=== PATIENT | female | born 1975 | race Caucasian/White ===

== ENCOUNTER 2017-03-27 13:57 | Outpatient (CLI) | payer OTHER ==
--- NOTE | 2017-03-28 10:10 | Mammography Report ---
BILATERAL DIGITAL DIAGNOSTIC MAMMOGRAM: 03/27/2017 CLINICAL HISTORY: A 42-year-old female in for a routine screening mammogram. Patient has no family history of breast cancer. Patient did have a biopsy of the right breast of a small mass in the upper -outer quadrant. This was a needle biopsy which showed a benign fibroadenoma. Present exam is being done approximately one year after patient's ultrasound-guided biopsy. COMPARISON: 04/05/2016, 04/12/2016. TECHNIQUE: Craniocaudal and oblique lateral views of each breast were obtained with [employer] full fie ld digital mammography. To complement the exam, axillary exaggerated craniocaudad views of each [address]ag[address] st were obtained. Also, coned-down compression craniocaudad view of the right breast was done. FINDINGS: Heterogeneously dense breasts are noted bilaterally. No significant no significant cluste rs of calcification are seen. Previously noted well-circumscribed mass in the 12 o'clock position of the right breast, 3 cm from th e right nipple, is once again seen. This mass is not significantly changed in size as compared to pr eceding exams dated 04/05/2016 and 04/12/2016. It measures 1.2 cm x 0.7 cm. This is approximately i ts size on preceding exam. Finding configuration is consistent with a benign fibroadenoma being oval -shaped and well-circumscribed. A small metallic marker is seen adjacent to the lateral anterior asp ect of the mass. This marker was placed into this region at the time of patient's biopsy and identif ies the mass as the one that was biopsied. IMPRESSION: NO CHANGE IS NOTED COMPARED TO PRECEDING EXAMS DATED 04/05/2016 AND 04/12/2016. A 1. 2 CM X 0.7 CM WELL-CIRCUMSCRIBED BENIGN FIBROADENOMA IS ONCE AGAIN SEEN IN THE 12 O'CLOCK POSITION OF THE ANTERIOR HALF OF THE RIGHT BREAST. BIRADS CATEGORY: 2, BENIGN FINDING. RECOMMENDATION: ANNUAL BILATERAL SCREENING MAMMOGRAPHY. COMMENT: Patient was given a written form indicating the benign findings and recommending a repeat b ilateral screening mammogram in one year. JOB #: [id number] EXT JOB #:[id number]
== END 2017-03-27 13:58 | disposition home or self-care (01) ==
LOC: DI 13:57
PROVIDERS: ATTEND Family Medicine
DX: D24.1 Benign neoplasm of right breast (principal)
CPT/HCPCS: 77066

== ENCOUNTER 2017-07-01 17:25 | Outpatient (CLI) | payer OTHER ==
--- NOTE | 2017-07-02 09:36 | XRAY Report ---
CERVICAL SPINE: 07/01/2017 COMPARISON STUDY: Cervical spine CT 02/18/2014. INDICATION: Neck pain. TECHNIQUE: Five views of the cervical spine. FINDINGS: C4-C5 and C5-C6 fusion are noted. There is narrowing of the bony neural foramina as follows: Right: C3-C4 moderate, C4-C5 mild, C5-C6 mild. Left: C3-C4 moderate, C4-C5 moderate, C5-C6 mild to moderate. There is mild narrowing of the C3-C4 disk space. There are mild anterior osteophytes at multiple lev els. There is no prevertebral soft tissue swelling. The lateral masses appear symmetric. IMPRESSION: MILD TO MODERATE CERVICAL SPONDYLOSIS DETAILED ABOVE. JOB #: [id number] EXT JOB #:[id number]
== END 2017-07-01 17:26 | disposition home or self-care (01) ==
LOC: DI 17:25
PROVIDERS: ATTEND Family Medicine
DX: M47.892 Other spondylosis, cervical region (principal)
CPT/HCPCS: 72050

== ENCOUNTER 2018-11-05 10:23 | Emergency (ER) | payer OTHER ==
--- NOTE | 2018-11-05 11:49 | ED Physician Documentation ---
PD HPI URI - Stated complaint Stated Complaint: PAINFUL BREATHING/LIGHT HEADED - Chief complaint Chief Complaint: Resp - History obtained from History obtained from: Patient - History of Present Illness Timing - onset: How many days ago (10) Timing duration: Days (10) Timing details: Gradual onset, Now resolved Associated symptoms: Nasal congestion, Rhinorrhea, Productive cough, Dyspnea Contributing factors: Sick contact Improves by: Rest, Medication Similar symptoms before: Diagnosis (bronchitis) Recently seen: Not recently seen - Additional information Additional information: 43-year-old female has had a cough and congestion for the past 10 days she is been producing some phlegm but she has been swallowing it. She has not had any fever associated with this she felt that she would get better with this and she wanted to try to get up and go to work today and felt that she was even worse. She has some shortness of breath and she has used an inhaler before but she is even forgot that she had that. She has it right in her purse. Review of Systems Constitutional: denies: Fever Eyes: denies: Decreased vision Ears: denies: Ear pain Nose: reports: Rhinorrhea / runny nose, Congestion Throat: reports: Sore throat Cardiac: denies: Chest pain / pressure, Palpitations Respiratory: reports: Dyspnea, Cough, Wheezing GI: denies: Abdominal Pain, Nausea, Vomiting : denies: Dysuria, Frequency PD PAST MEDICAL HISTORY - Past Medical History Musculoskeletal: Chronic back pain, Other - Past Surgical History Past Surgical History: Yes General: Cholecystectomy - Present Medications Home Medications: Ambulatory Orders Medication Instructions Recorded Confirmed Azithromycin [Zithromax] 250 mg PO DAILY #6 tablet 11/05/18 tiZANidine [Zanaflex] 1 tab PO TID PRN 11/05/18 11/05/18 - Allergies Allergies/Adverse Reactions: Allergies Allergy/AdvReac Type Severity Reaction Status Date / Time No Known Drug Allergies Allergy Verified 11/05/18 10:29 - Social History Does the pt smoke?: No Smoking Status: Never smoker Does the pt drink ETOH?: No - Immunizations Immunizations are current?: Yes PD ED PE NORMAL - Vitals Vital signs reviewed: Yes (hypertensive mild) - General General: Alert and oriented X 3, No acute distress, Well developed/nourished - HEENT HEENT: Atraumatic, PERRL, EOMI, Ears normal, Moist mucous membranes, Pharynx benign - Neck Neck: Supple, no meningeal sign, No bony TTP - Cardiac Cardiac: RRR, No murmur - Respiratory Respiratory: No respiratory distress, Other (diminished breath sounds without rhonchi) - Abdomen Abdomen: Soft, Non tender - Back Back: No CVA TTP, No spinal TTP - Derm Derm: Normal color, Warm and dry, No rash - Extremities Extremities: No deformity, No edema - Neuro Neuro: Alert and oriented X 3, skiver box toe 2-12 intact, No motor deficit, No sensory deficit, Normal speech Eye Opening: Spontaneous Motor: Obeys Commands Verbal: Oriented GCS Score: 15 - Psych Psych: Normal mood, Normal affect Results - Vitals Vitals: Vital Signs - 24 hr 11/05/18 10:28 Temperature 36.1 C L Heart Rate 74 Respiratory 18 Rate Blood Pressure 137/78 H O2 Saturation 100 Oxygen O2 Source Room air PD MEDICAL DECISION MAKING - ED course Complexity details: reviewed old records, considered differential, d/w patient ED course: 43-year-old female has had cough and congestion has some wheezing and no evidence of rhonchi on examination. She does not feel well enough to go back to work and she has had productive cough for [address] her on a cour se of antibiotic after giving her some dexamethasone and I will encourage her to use her inhaler. Departure - Departure Disposition: 01 Home, Self Care Clinical Impression: Asthmatic bronchitis Qualifiers: Asthma severity: mild Asthma persistence: intermittent Asthma complication type: with acute exacerbation Qualified Code(s): J45.21 - Mild intermittent asthma with (acute) exacerbation Condition: Stable Instructions: ED Bronchitis Asthmatic Follow-Up: Mekhi Montalvo DO [Primary Care Provider] - Prescriptions: Azithromycin [Zithromax] 250 mg PO DAILY #6 tablet Forms: Activity restrictions
[2018-11-05] MEDS ORDERED: DEXAMETHASONE 10 MG/ML VIAL PO STA (11:51)
[2018-11-05 11:58] VITALS: BP 122/84
== END 2018-11-05 12:02 | disposition home or self-care (01) ==
LOC: ED 10:23
DX: J45.21 Mild intermittent asthma with (acute) exacerbation (principal)
CPT/HCPCS: 99283

== ENCOUNTER 2018-12-09 09:23 | Outpatient (CLI) | payer OTHER ==
--- NOTE | 2018-12-09 12:20 | Mammography Report ---
Reason: R BREAST TENDERNESS Procedure Date: 12/09/2018 Accession Number: [id number] / [id number] Procedure: SATISH - Diagnostic Dig Bilat CPT Code: FULL RESULT: EXAM: Diagnostic Dig Bilat, Breast Unilateral Limited DATE: 12/09/2018 10:08 AM CLINICAL HISTORY: Several months of focal right upper outer breast pain. No reported personal or family history of breast cancer. TECHNIQUE: (B) - Bilateral Bilateral CC and MLO views were obtained. 90 degree lateral 2-D 3-D right breast mammogram. Real-time ultrasound performed by both technologist and the radiologist on the right. COMPARISON: 03/27/2017 through 04/05/2016 PARENCHYMAL PATTERN: (D) - The breasts demonstrate heterogeneously dense fibroglandular parenchyma bilaterally. FINDINGS: Right breast: There are no suspicious masses, calcifications or areas of distortion. There is no mammographic finding of concern in the region of focal pain per patient marked with an external marker posterior upper outer breast. There is a stable biopsy marker with associated oval, circumscribed mass in the 12:00 breast consistent with the previously biopsied fibroadenoma. Targeted ultrasound at 11:00, 6 cm from the nipple at the site of focal pain demonstrates normal appearing glandular tissue associated with intermixed clustered simple cysts consistent with focal fibrocystic condition. No mass or concerning finding. Left breast: There are no suspicious masses, calcifications, or areas of distortion. IMPRESSION: Right breast: Benign imaging findings: Area of focal pain per patient associated with focal fibrocystic change by ultrasound. Benign. BI-RADS Category 2. Recommend annual screening mammography. Left breast: Negative. BI-RADS Category 1. Recommend annual screening mammography. RECOMMENDATION: (ANNUAL) - Recommend routine annual screening mammography. BI-RADS CATEGORY: (2) - Benign Findings STANDARD QUALIFYING STATEMENTS: 1. This examination was not reviewed with the aid of Computer-Aided Detection (CAD). 2. A negative or benign imaging report should not preclude biopsy if clinically suspicious findings are present. 3. Dense breasts may obscure an underlying neoplasm. 4. This examination was reviewed with the aid of 3D breast imaging (tomosynthesis).
== END 2018-12-09 09:24 | disposition home or self-care (01) ==
LOC: DI 09:23
PROVIDERS: ATTEND Family Medicine
DX: N64.4 Mastodynia (principal)
CPT/HCPCS: 76642; 77066

== ENCOUNTER 2018-12-11 18:34 | Outpatient (CLI) | payer OTHER ==
--- NOTE | 2018-12-13 09:18 | XRAY Report ---
Reason: LOW BACK PAIN,HISTORY OF LUMBAR FUSION Procedure Date: 12/11/2018 Accession Number: [id number] / [id number] Procedure: XR - Lumbar Spine 2 View CPT Code: FULL RESULT: EXAM: LUMBOSACRAL SPINE RADIOGRAPHY EXAM DATE: 12/11/2018 06:54 PM. CLINICAL HISTORY: Low back pain. History of lumbar fusion. COMPARISONS: None. TECHNIQUE: 3 views. FINDINGS: Alignment: Normal. No spondylolisthesis or scoliosis. Bones: Five hwa-cox-wxurctr lumbar vertebral bodies are present. No fractures or bone lesions. There are operative changes status post L5-S1 fusion with placement of dual posterior fixation struts and anchoring pedicle screws. Solid-appearing fusion of the interbody bone plug. Probable right lateral bony fusion material seen on the frontal projection. Disks: Normal. Disk heights are maintained. Facets: No degenerative changes. Sacroiliac Joints: Unremarkable. Soft Tissues: Normal. The visualized bowel gas pattern is normal. IMPRESSION: Operative changes of L5-S1 fusion, as described, without evidence of hardware/delayed complication. Otherwise normal lumbar spine radiographs. RAD[facility]
== END 2018-12-11 18:35 | disposition home or self-care (01) ==
LOC: DI 18:34
PROVIDERS: ATTEND Family Medicine
DX: M54.5 Low back pain (principal); Z98.1 Arthrodesis status
CPT/HCPCS: 72100

== ENCOUNTER 2019-01-13 15:38 | Outpatient (CLI) | payer OTHER ==
--- NOTE | 2019-01-14 13:20 | XRAY Report ---
Reason: UPPER BACK PAIN, CERVICALGIA Procedure Date: 01/13/2019 Accession Number: [id number] / [id number] Procedure: XR - Thoracic Spine 2 View CPT Code: FULL RESULT: EXAM: THORACIC SPINE RADIOGRAPHY EXAM DATE: 01/13/2019 04:02 PM. CLINICAL HISTORY: Upper back pain, cervicalgia. COMPARISON: None. TECHNIQUE: 2 views. FINDINGS: Alignment: Normal. No spondylolisthesis or scoliosis. Bones: No fractures or bone lesions. Disks: Normal. Disk heights are maintained. Soft Tissues: Cholecystectomy clips are noted. The visualized lungs and cardiomediastinal silhouette are normal. IMPRESSION: Normal thoracic spine radiography. RADIA
--- NOTE | 2019-01-14 13:30 | XRAY Report ---
Reason: UPPER BACK PAIN,CERVICALGIA Procedure Date: 01/13/2019 Accession Number: [id number] / [id number] Procedure: XR - Cervical Spine 2 View CPT Code: FULL RESULT: EXAM: CERVICAL SPINE RADIOGRAPHY EXAM DATE: 01/13/2019 04:02 PM. CLINICAL HISTORY: Upper back pain, cervicalgia. COMPARISONS: CERVICAL SPINE COMPLETE 07/01/2017 5:30 PM. TECHNIQUE: 3 views. FINDINGS: Alignment: The patient is status post ACDF of C4-C6 with disk spacer devices and no osseous union as yet. No spondylolisthesis or scoliosis. Bones: The cervical vertebral bodies and posterior elements are well visualized from the skull base through C7-T1. No fractures or bone lesions. Disks: There is mild anterior disk osteophyte complex formation at C3-C4, level above fusion. Facets: Lateral masses and facets demonstrate minimal degenerative changes. Soft Tissues: Normal. No prevertebral soft tissue swelling. The visualized lung apices are clear. IMPRESSION: Status post ACDF with preserved alignment and no osseous fusion as yet. RADIA
== END 2019-01-13 15:39 | disposition home or self-care (01) ==
LOC: DI 15:38
PROVIDERS: ATTEND Physician Assistant Medical
DX: M54.2 Cervicalgia (principal); Z98.1 Arthrodesis status; M54.6 Pain in thoracic spine
CPT/HCPCS: 72040; 72070

== ENCOUNTER 2019-07-06 14:41 | Outpatient (CLI) | payer OTHER | END 2019-07-06 23:59 | disposition home or self-care (01) | LOC: LAB.R 14:41 | PROVIDERS: ATTEND Obstetrics & Gynecology | DX: N92.1 Excessive and frequent menstruation with irregular cycle (principal) | CPT/HCPCS: 87086 ==

== ENCOUNTER 2019-07-07 07:25 | Outpatient (CLI) | payer OTHER ==
[2019-07-07 12:31] LABS: MEAN CORPUSCULAR HEMOGLOBIN 25.7 pg (27.0-31.0); MEAN CORPUSCULAR HGB CONC 31.2 g/dL (32.0-36.0); MEAN CORPUSCULAR VOLUME 82.5 fL (81.0-99.0); MEAN PLATELET VOLUME 10.4 fL (7.9-10.8); RED BLOOD COUNT 4.28 10^6/uL (4.20-5.40); RED CELL DISTRIBUTION WIDTH 16.1 % (12.0-15.0); WHITE BLOOD COUNT 7.3 x10^3/uL (4.8-10.8)
[2019-07-07 13:31] LABS: PROLACTIN 14.85 ng/mL
[2019-07-07 13:52] LABS: FOLLICLE STIMULATING HORMONE 7.08 mIU/mL
[2019-07-07 13:53] LABS: LUTEINIZING HORMONE 1.62 mIU/mL
[2019-07-12 08:16] LABS: FREE TESTOSTERONE 0.5 pg/mL (0.1-6.4)
== END 2019-07-07 23:59 | disposition home or self-care (01) ==
LOC: LAB.WCP 07:25
PROVIDERS: ATTEND Obstetrics & Gynecology
DX: N92.1 Excessive and frequent menstruation with irregular cycle (principal)
CPT/HCPCS: 36415; 81599; 83001; 83002; 83498; 84146; 84270; 84402; 84403; 84443; 85027

== ENCOUNTER 2019-07-16 06:42 | Outpatient (CLI) | payer OTHER ==
--- NOTE | 2019-07-16 10:53 | Ultrasound Report ---
Reason: MENOMETRORRHAGIA Procedure Date: 07/16/2019 Accession Number: [id number] / [id number] Procedure: US - Pelvic w/Transvaginal CPT Code: Addended Final Report FULL RESULT: EXAM: PELVIC ULTRASOUND EXAM DATE: 07/16/2019 07:45 AM. CLINICAL HISTORY: MENOMETRORRHAGIA. COMPARISON: None. TECHNIQUE: Realtime transabdominal pelvic scan performed to identify the uterus and adnexa and as an overview of other pelvic structures, followed by transvaginal scan to provide greater detail of the uterus and adnexa, with static image documentation. FINDINGS: Uterus: 9.7 x 6 x 6.9 cm, volume 209.7 cc. Anteverted position. Enlarged Masses: None. Endometrium: 6 mm. Normal. Cervix: Unremarkable. Right Ovary: 3.1 x 2.4 x 3 cm, volume 11.5 cc. 2.3 x 1 x 1.6 cm cyst Normal echotexture and blood flow. Left Ovary: 2.9 x 2.8 x 2.3 cm, volume 10.2 cc. There were 8 x 2.7 x 1 cm cyst Normal echotexture and blood flow. Free Fluid: Small Other: None. IMPRESSION: 1. Simple cysts bilateral ovaries. 2. Enlarged uterus without fibroids [facility] ADDENDUM: 07/20/19 16:01 Left ovary 0.8 x 2.7 x 1 cm cyst
== END 2019-07-16 06:43 | disposition home or self-care (01) ==
LOC: DI 06:42
PROVIDERS: ATTEND Obstetrics & Gynecology
DX: N83.202 Unspecified ovarian cyst, left side (principal); N83.201 Unspecified ovarian cyst, right side; N85.2 Hypertrophy of uterus
CPT/HCPCS: 76830; 76856

== ENCOUNTER 2020-03-15 14:32 | Outpatient (CLI) | payer OTHER | END 2020-03-15 14:33 | disposition home or self-care (01) | LOC: LAB 14:32 | PROVIDERS: ATTEND Internal Medicine | DX: Z11.59 Encounter for screening for other viral diseases (principal); Z13.9 Encounter for screening, unspecified | CPT/HCPCS: 81599 ==

== ENCOUNTER 2020-06-29 15:14 | Outpatient (CLI) | payer OTHER ==
--- NOTE | 2020-06-29 17:33 | XRAY Report ---
PROCEDURE: Cervical Spine Complete INDICATIONS: RT CERVICAL RADICOLOPATHY TECHNIQUE: 5 view(s) of the cervical spine were acquired. COMPARISON: None. FINDINGS: Bones: Status post cervical discectomy and fusion of C4-C6. No evidence for hardware complication. T here appears to be osseous fusion across the fused segments. No acute fractures or dislocations to th e T2 level. The lateral masses of C1 appear intact on the odontoid view. No suspicious bony lesions . Straightening of cervical lordosis. Degenerative changes at C3-4. Oblique images demonstrate mild bony foraminal stenosis from C3-4 through C5-6. Soft tissues: No prevertebral soft tissue swelling. IMPRESSION: 1. Cervical spine without acute radiographic abnormalities. 2. Status post discectomy and fusion from C4 through C6. 3. Spondylitic changes at C3-4. 4. Mild bony foraminal narrowing from C3-4 through C5-6 bilaterally. 5. Straightening of cervical lordosis likely related to positioning and/or concurrent muscle spasms. Reviewed by: Db Gregorio MD on 06/29/2020 5:32 PM PDT Approved by: Db Gregorio MD on 06/29/2020 5:32 PM PDT Station ID: [id number]
== END 2020-06-29 15:15 | disposition home or self-care (01) ==
LOC: DI 15:14
PROVIDERS: ATTEND Family Medicine
DX: M47.22 Other spondylosis with radiculopathy, cervical region (principal); Z98.1 Arthrodesis status
CPT/HCPCS: 72050

== ENCOUNTER 2020-08-22 20:31 | Outpatient (CLI) | payer OTHER | END 2020-08-22 20:32 | disposition home or self-care (01) | LOC: COV 20:31 | PROVIDERS: ATTEND Family Medicine | DX: R05 Cough (principal); R06.02 Shortness of breath; M79.10 Myalgia, unspecified site; R53.83 Other fatigue; R07.0 Pain in throat; R09.81 Nasal congestion; Z20.828 Contact with and (suspected) exposure to other viral communicable diseases ==

== ENCOUNTER 2020-09-15 17:21 | Emergency (ER) | payer OTHER ==
[2020-09-15 17:56] LABS: BILIRUBIN,URINE NEGATIVE (NEGATIVE); GLUCOSE, URINE (UA) NEGATIVE (NEGATIVE); KETONES,URINE (UA) NEGATIVE (NEGATIVE); LEUKOCYTE ESTERASE, URINE NEGATIVE (NEGATIVE); NITRITE,URINE NEGATIVE (NEGATIVE); OCCULT BLOOD,URINE MODERATE (NEGATIVE); PROTEIN,URINE NEGATIVE (NEGATIVE); UROBILINOGEN,URINE 0.2 (NORMAL) E.U./dL (NORMAL)
[2020-09-15 18:04] LABS: CLARITY,URINE HAZY (CLEAR); HCG UR QUAL NEGATIVE
[2020-09-15 18:05] LABS: BACTERIA,URINE Many /HPF (None Seen); SQUAMOUS EPITHELIAL CELL,UR MANY Squamous (<= Few)
[2020-09-15 18:20] LABS: BASOPHILS % (AUTO) 0.4 %; EOSINOPHILS # (AUTO) 0.2 10^3/uL (0.0-0.7); EOSINOPHILS % (AUTO) 2.2 %; HGB - HEMOGLOBIN 11.7 g/dL (12.0-16.0); LYMPHOCYTES # (AUTO) 2.4 10^3/uL (1.5-3.5); LYMPHOCYTES % (AUTO) 26.3 %; MEAN CORPUSCULAR HEMOGLOBIN 27.1 pg (27.0-31.0); MEAN CORPUSCULAR HGB CONC 32.3 g/dL (32.0-36.0); MONOCYTES # (AUTO) 0.6 10^3/uL (0.0-1.0); MONOCYTES % (AUTO) 6.2 %; NEUTROPHILS # (AUTO) 5.8 10^3/uL (1.5-6.6); NEUTROPHILS % (AUTO) 64.5 %; PLT - PLATELET COUNT 235 10^3/uL (130-450); RED BLOOD COUNT 4.31 10^6/uL (4.20-5.40); RED CELL DISTRIBUTION WIDTH 14.6 % (12.0-15.0)
[2020-09-15] MEDS ORDERED: KETOROLAC 30 MG/ML VIAL IVP STA (18:31)
[2020-09-15] MEDS ORDERED: DEXAMETHASONE 10 MG/ML VIAL IVP STA (18:32)
--- NOTE | 2020-09-15 18:32 | ED Physician Documentation ---
History of Present Illness - Stated complaint Stated Complaint: back pain - Chief complaint Chief Complaint: Abd Pain - History obtained from History obtained from: Patient - History of Present Illness Timing: How many weeks ago (several) Pain level max: 7 Pain level now: 5 - Additonal information Additional information: Patient is a 45-year-old female who presents to the emergency department with hematuria intermittently for the last several weeks. She also has a right low back pain that is been ongoing for the past several weeks as well. Has a history of chronic sciatica and states that this feels similar. Has never had ureteral stones. No fevers. No vomiting. No chills. Worse with movement and bending. Better with rest. No numbness or tingling. No loss of bowel or bladder control. No IV drug use. No fevers. No trauma. Review of Systems Constitutional: denies: Fever, Chills Throat: denies: Sore throat Cardiac: denies: Chest pain / pressure Respiratory: denies: Cough GI: denies: Abdominal Pain, Nausea, Vomiting : denies: Vaginal bleeding Skin: denies: Rash Musculoskeletal: denies: Neck pain Neurologic: denies: Focal weakness, Numbness, Headache PD PAST MEDICAL HISTORY - Past Medical History Past Medical History: Yes Musculoskeletal: Chronic back pain, Other - Past Surgical History Past Surgical History: Yes General: Cholecystectomy - Present Medications Home Medications: Ambulatory Orders Medication Instructions Recorded Confirmed Cephalexin [Keflex] 500 mg PO Q6H #28 capsule 09/15/20 Meloxicam [Mobic] 15 mg PO DAILY PRN #20 tablet 09/15/20 Methylprednisolone [Medrol] 4 mg PO DAILY #1 tab.ds.pk 09/15/20 - Allergies Allergies/Adverse Reactions: Allergies Allergy/AdvReac Type Severity Reaction Status Date / Time No Known Drug Allergies Allergy Verified 09/15/20 17:33 - Social History Does the pt smoke?: No Smoking Status: Never smoker Does the pt drink ETOH?: No - Immunizations Immunizations are current?: Yes PD ED PE NORMAL - Vitals Vital signs reviewed: Yes - General General: Alert and oriented X 3, No acute distress, Well developed/nourished - HEENT HEENT: PERRL, Moist mucous membranes - Neck Neck: Supple, no meningeal sign - Cardiac Cardiac: RRR, Strong equal pulses - Respiratory Respiratory: No respiratory distress, Clear bilaterally - Abdomen Abdomen: Soft, Non tender, Non distended - Back Back: No CVA TTP, No spinal TTP (No midline tenderness to palpation or percussion.), Other (TTP over the R SI joint, reproduces her pain.) - Derm Derm: Warm and dry - Extremities Extremities: Other (Normal bilateral lower extremity patellar and ankle jerk reflexes. Normal great toe extension bilaterally. no saddle anesthesia) - Neuro Neuro: Alert and oriented X 3 - Psych Psych: Normal mood, Normal affect Results - Vitals Vitals: Vital Signs - 24 hr 09/15/20 09/15/20 09/15/20 17:30 19:36 19:58 Temperature 37.0 C 36.5 C Heart Rate 88 87 77 Respiratory 18 18 19 Rate Blood Pressure 147/83 H 115/60 122/80 O2 Saturation 100 99 100 Oxygen O2 Source Room air - Labs Labs: Laboratory Tests 09/15/20 09/15/20 09/15/20 17:45 18:07 18:07 WBC 9.0 RBC 4.31 Hgb 11.7 L Hct 36.2 L MCV 84.0 MCH 27.1 MCHC 32.3 RDW 14.6 Plt Count 235 MPV 10.0 Neut # (Auto) 5.8 Lymph # (Auto) 2.4 Garden # (Auto) 0.6 Eos # (Auto) 0.2 Baso # (Auto) 0.0 Absolute Nucleated RBC 0.00 Nucleated RBC % 0.0 Sodium 135 Potassium 3.7 Chloride 101 Carbon Dioxide 27 Anion Gap 7.0 BUN 16 Creatinine 0.7 Estimated GFR (MDRD) 90 Glucose 97 Calcium 8.7 Total Bilirubin 0.3 AST 20 ALT 20 Alkaline Phosphatase 73 Total Protein 7.2 Albumin 3.9 Globulin 3.3 Albumin/Globulin Ratio 1.2 Lipase 30 Urine Color YELLOW Urine Clarity HAZY Urine pH 6.0 Ur Specific [place] >=1.030 H Urine Protein NEGATIVE Urine Glucose (UA) NEGATIVE Urine Ketones NEGATIVE Urine Occult Blood MODERATE H Urine Nitrite NEGATIVE Urine Bilirubin NEGATIVE Urine Urobilinogen 0.2 (NORMAL) Ur Leukocyte Esterase NEGATIVE Urine RBC 11-25 H Urine WBC 6-10 H Ur Squamous Epith Cells MANY Squamous H Urine Bacteria Many H Ur Microscopic Review INDICATED Urine Culture Comments NOT INDICATED Urine HCG, Qual NEGATIVE - Rads (name of study) CT abdomen pelvis Radiology: Prelim report reviewed, EMP read contemporaneously, See rad report PD MEDICAL DECISION MAKING - ED course Complexity details: reviewed results, re-evaluated patient, considered differential, d/w patient ED course: 45-year-old female with what appears to be sacroiliitis. Will place on steroids and anti-inflammatories. She also has a UTI and we will treat for this. Does not have any ureteral stones. No evidence of sepsis. No evidence of pyelonephritis. Patient is well-appearing, nontoxic. Afebrile. Does not use IV drugs. No trauma. No evidence of cauda equina or epidural abscess. Ambulating well. Patient counseled regarding signs and symptoms for which I believe and urgent re-evaluation would be necessary. Patient with good understanding of and agreement to plan and is comfortable going home at this time This document was made in part using voice recognition software. While efforts are made to proofread this document, sound alike and grammatical errors may occur. Nonobstructive left nephrolithiasis. Normal appendix Heterogeneous appearance of the uterus, possibly uterine fibroid although further evaluation with dedicated pelvic ultrasound could be performed for further assessment as necessary. Departure - Departure Disposition: 01 Home, Self Care Clinical Impression: Sacroiliitis UTI (urinary tract infection) Qualifiers: Urinary tract infection type: acute cystitis Hematuria presence: with hematuria Qualified Code(s): N30.01 - Acute cystitis with hematuria Condition: Good Instructions: ED Sacroiliitis, ED UTI Cystitis Female Follow-Up: Mekhi Montalvo DO [Primary Care Provider] - Within 1 week Prescriptions: Cephalexin [Keflex] 500 mg PO Q6H #28 capsule Methylprednisolone [Medrol] 4 mg PO DAILY #1 tab.ds.pk Meloxicam [Mobic] 15 mg PO DAILY PRN #20 tablet PRN Reason: pain Comments: Follow up with your doctor for further care. Take all antibiotics until gone. The back pain should improve with the steroids and mobic. Discharge Date/Time: 09/15/20 20:16
[2020-09-15 18:39] LABS: ALBUMIN 3.9 g/dL (3.2-5.5); ALBUMIN/GLOBULIN RATIO 1.2 (1.0-2.2); BILIRUBIN,TOTAL 0.3 mg/dL (0.2-1.0); CALCIUM 8.7 mg/dL (8.5-10.3); CREATININE 0.7 mg/dL (0.4-1.0); TOTAL PROTEIN 7.2 g/dL (6.7-8.2)
--- NOTE | 2020-09-15 19:19 | CT Report ---
PROCEDURE: Abdomen/Pelvis WO INDICATIONS: R flank pain, hematuria TECHNIQUE: Noncontrast 5 mm thick sections acquired from the diaphragms to the symphysis. 5 mm coronal and sagi ttal reformats were then performed. For radiation dose reduction, the following was used: automated exposure control, adjustment of mA and/or kV according to patient size. COMPARISON: None. FINDINGS: Image quality: Excellent. ABDOMEN: Lung bases: Lung bases are clear. Heart size is normal. Solid organs: Liver and spleen are normal in size. Gallbladder surgically absent Pancreas is danya l in contours. No adrenal nodules. Kidneys are normal in size, without hydronephrosis. There is 3 m m left inferior pole nephrolithiasis. Peritoneum and bowel: Unenhanced bowel loops demonstrate normal wall thickness and caliber. No free fluid or air. Normal appendix Nodes and vessels: No retroperitoneal or mesenteric adenopathy by size criteria. Aorta and inferior vena cava are normal in caliber. Miscellaneous: No ventral hernias. PELVIS: Genitourinary: Bladder wall thickness is normal. Possible uterine fibroid although this could be co nfirmed with dedicated pelvic ultrasound as clinically warranted. Miscellaneous: No inguinal hernias or adenopathy. Bones: No suspicious bony lesions. No vertebral body compression fractures. IMPRESSION: Nonobstructive left nephrolithiasis. Normal appendix Heterogeneous appearance of the uterus, possibly uterine fibroid although further evaluation with ded icated pelvic ultrasound could be performed for further assessment as necessary. Reviewed by: Cesar Bowers MD on 09/15/2020 7:18 PM PST Approved by: Cesar Bowers MD on 09/15/2020 7:18 PM PST Station ID: [id number]
[2020-09-15] MEDS ORDERED: cefTRIAXone 1 GM VIAL IVP STA (19:35)
[2020-09-15 19:58] VITALS: BP 122/80
--- OUTSIDE RECORDS SUMMARY | 2020-09-20 01:46 | EXTERNAL MEDICAL SUMMARY RPT | Continuity of Care Document ---
:1975 Demographics Phone Unavailable Preferred Language Unknown Marital Status Unknown Anglican Affiliation Unknown Race Unknown Ethnic Group Unknown Author Organization [place] Address [address] [phone] Phone Care Team Providers Name Role Phone Lemme Unavailable Unavailable Problems date description facility 2020-06-29 15:14 OTHER SPONDYLOSIS WITH [facility] RADICULOPATHY, CERVICAL REGION 2020-06-29 15:14 RADICULOPATHY, CERVICAL REGION [facility] 2020-06-29 15:14 ARTHRODESIS STATUS [facility] Allergies date description facility NO KNOWN ALLERGIES [facility] MORPHINE [facility] No Known Drug Allergies [facility] Results Social History date description facility [id number]
== END 2020-09-15 20:16 | disposition home or self-care (01) ==
LOC: ED 17:21
DX: M46.1 Sacroiliitis, not elsewhere classified (principal); N30.01 Acute cystitis with hematuria
CPT/HCPCS: 74176; 80053; 81001; 81003; 81025; 83690; 85025; 87086; 96374; 96375; 99284

== ENCOUNTER 2021-03-30 18:05 | Outpatient (CLI) | payer OTHER ==
--- NOTE | 2021-03-31 07:12 | Ultrasound Report ---
PROCEDURE: Pelvic w/Transvaginal INDICATIONS: MENOMETRORRHAGIA TECHNIQUE: Real-time scanning was performed of the pelvic organs, with image documentation. Additional endovagi nal scanning was necessary due to incomplete visualization of the adnexal and endometrial structures by transabdominal scanning. COMPARISON: CT abdomen and pelvis 09/15/2020. Prior pelvic ultrasound 07/16/2019.. FINDINGS: No pathologic free abdominal or pelvic fluid. Uterus: Uterus is normal in size at 5.2 x 6.3 x 10.8 cm., anteverted The endometrium measures 20-24 mm in combined thickness. The endometrial lining is heterogeneous in echotexture Ovaries: The right ovary measures 1.3 x 2.3 x 3.3 cm with an overall ovarian volume of 4.9 cc. The l eft ovary measures 5.8 x 3.2 x 5.5 cm with an asymmetric increased volume of 52 cc. There is a simple cyst producing this enlargement measuring up to 3.5 x 2.8 x 4.4 cm. IMPRESSION: Endometrial hyperplasia, heterogeneous, measuring up to 2.4 cm in maximal thickness. The patient repo rts hysteroscope procedure is scheduled. This appearance could represent a manifestation of in situ e ndometrial carcinoma. No adjacent peritoneal mass or abnormal fluid collection is seen. Reviewed by: Lit Laura MD on 03/31/2021 7:11 AM PDT Approved by: Lit Laura MD on 03/31/2021 7:11 AM PDT Station ID: [id number]
== END 2021-03-30 18:06 | disposition home or self-care (01) ==
LOC: DI 18:05
PROVIDERS: ATTEND Obstetrics & Gynecology
DX: N85.00 Endometrial hyperplasia, unspecified (principal)

== ENCOUNTER 2021-04-03 07:49 | Outpatient (CLI) | payer OTHER ==
[2021-04-03 08:20] LABS: BASOPHILS # (AUTO) 0.1 10^3/uL (0.0-0.1); BASOPHILS % (AUTO) 0.6 %; EOSINOPHILS # (AUTO) 0.2 10^3/uL (0.0-0.7); EOSINOPHILS % (AUTO) 2.1 %; HCT - HEMATOCRIT 35.7 % (37.0-47.0); HGB - HEMOGLOBIN 11.4 g/dL (12.0-16.0); LYMPHOCYTES # (AUTO) 2.6 10^3/uL (1.5-3.5); LYMPHOCYTES % (AUTO) 31.2 %; MEAN CORPUSCULAR HEMOGLOBIN 27.1 pg (27.0-31.0); MEAN CORPUSCULAR HGB CONC 31.9 g/dL (32.0-36.0); MEAN PLATELET VOLUME 9.8 fL (7.9-10.8); MONOCYTES # (AUTO) 0.5 10^3/uL (0.0-1.0); MONOCYTES % (AUTO) 6.3 %; NEUTROPHILS % (AUTO) 59.3 %; PLT - PLATELET COUNT 260 10^3/uL (130-450); RED CELL DISTRIBUTION WIDTH 14.8 % (12.0-15.0); WHITE BLOOD COUNT 8.4 x10^3/uL (4.8-10.8)
== END 2021-04-03 07:50 | disposition home or self-care (01) ==
LOC: LAB 07:49
PROVIDERS: ATTEND Obstetrics & Gynecology
DX: Z01.812 Encounter for preprocedural laboratory examination (principal); N92.1 Excessive and frequent menstruation with irregular cycle; N80.9 Endometriosis, unspecified
CPT/HCPCS: 36415; 84702; 85025

== ENCOUNTER 2021-04-05 06:25 | Day surgery (SDC) | payer OTHER ==
[~2021-04-05 06:25] MED LIST: ACETAMINOPHEN 1,000 MG/100 ML 100 ML IV ONE; CELECOXIB 100 MG CAPSULE PO ONE; ceFAZolin 2 GM/50 ML 2 GM/50 ML BAG IV ONE
[2021-04-05] MEDS ORDERED: GABAPENTIN 400 MG CAPSULE ONE (06:26)
[2021-04-05] MEDS ORDERED: LACTATED RINGERS 1,000 ML IV ONE ×2 (06:32→08:19)
--- NOTE | 2021-04-05 07:18 | ANESTHESIA ---
Pre-Anesthesia VS, & Labs - Diagnosis menometrorrhagia, endometriosis - Procedure Myosure Hysteroscopy, D&C Vital Signs: Temp Pulse Resp BP Pulse Ox 36 C L 103 H 18 122/88 H 98 04/05/21 06:32 04/05/21 06:32 04/05/21 06:32 04/05/21 06:32 04/05/21 06:32 Height: 5 ft 6 in Weight (kg): 102 kg Body Mass Index: 36.3 BMI Classification: Obese - NPO >8 hours - Is Patient ?: No - Lab Results Lab results reviewed: Yes Home Medications and Allergies Home Medications: Ambulatory Orders No Known Home Medications 04/02/21 No Known Home Medications 04/02/21 Allergies/Adverse Reactions: Allergies Allergy/AdvReac Type Severity Reaction Status Date / Time No Known Drug Allergies Allergy Verified 09/15/20 17:33 Anes History & Medical History - Anesthetic History Anesthesia Complications: reports: No previous complications Family history of Anesthesia Complications: Denies Family history of Malignant Hyperthermia: Denies - Medical History Cardiovascular: reports: None Pulmonary: reports: None Gastrointestinal: reports: None Urinary: reports: None Musculoskeletal: reports: Chronic back pain, Other Endocrine/Autoimmune: reports: None Skin: reports: None Smoking Status: Never smoker - Surgical History General: reports: Cholecystectomy Gynecologic: reports: Tubal ligation Orthopedic: reports: Spine surgery Exam General: Alert, Oriented x3, Cooperative, No acute distress Dental: WNL Mouth Openin Fingerbreadth Mallampati classification: II Respiratory: Lungs clear, Normal breath sounds, No respiratory distress, No accessory muscle use Cardiovascular: Regular rate, Normal S1, Normal S2, No murmurs Plan Anesthesia Type: General Consent for Procedure(s) Verified and Reviewed: Yes Code Status: Attempt Resuscitation ASA classification: 2-Mild systemic disease Is this case an emergency?: No
[2021-04-05] MEDS ORDERED: MORPHINE 2 MG/ML CARPUJECT IVP PRN (07:19)
[2021-04-05] MEDS ORDERED: ATROPINE ABBOJECT 1 MG/10 ML SYRINGE IVP PRN (07:19)
[2021-04-05] MEDS ORDERED: fentaNYL 100 MCG/2 ML VIAL IVP PRN (07:19)
[2021-04-05] MEDS ORDERED: HYDROmorphone 0.5 MG/0.5 ML SYRINGE IVP PRN (07:19)
[2021-04-05] MEDS ORDERED: METOCLOPRAMIDE 10 MG/2 ML VIAL IVP PRN (07:19)
[2021-04-05] MEDS ORDERED: ePHEDrine 50 MG/ML VIAL IVP PRN (07:19)
[2021-04-05] MEDS ORDERED: ONDANSETRON 4 MG/2 ML VIAL IVP PRN ×2 (07:19→08:22)
[2021-04-05] MEDS ORDERED: NALOXONE 0.4 MG/ML VIAL IVP PRN (07:19)
[2021-04-05] MEDS ORDERED: BUPIVACAINE 0.5% PF 30 ML VIAL ONE (07:20)
[2021-04-05] MEDS ORDERED: LIDOCAINE MPF 2%-EPI 1:200000 20 ML VIAL ONE (07:20)
[2021-04-05] MEDS ORDERED: LIDOCAINE-MPF 2% 5 ML VIAL ONE (07:28)
[2021-04-05] MEDS ORDERED: MIDAZOLAM 2 MG/2 ML VIAL ONE (07:28)
[2021-04-05] MEDS ORDERED: PROPOFOL 200 MG/20 ML VIAL IVP ONE (07:28)
[2021-04-05] MEDS ORDERED: DEXAMETHASONE 4 MG/ML VIAL ONE (07:52)
[2021-04-05] MEDS ORDERED: LIDOCAINE MPF 2%-EPI 1:200000 20 ML VIAL SUBQ ONE (07:56)
[2021-04-05] MEDS ORDERED: BUPIVACAINE 0.5% PF 30 ML VIAL SUBQ ONE (07:59)
[2021-04-05] MEDS ORDERED: LACTATED RINGERS 1,000 ML IV SCH (08:00)
[2021-04-05] MEDS ORDERED: ONDANSETRON 4 MG/2 ML VIAL ONE (08:10)
[2021-04-05] MEDS ORDERED: KETOROLAC 30 MG/ML VIAL ONE (08:11)
[2021-04-05] MEDS ORDERED: LORazepam 2 MG/ML VIAL IVP PRN (08:22)
[2021-04-05] MEDS ORDERED: oxyCODONE 5 MG TABLET PO PRN (08:22)
--- NOTE | 2021-04-05 08:25 | OPERATIVE REPORT ---
Operative Report - General Procedure Date: 04/05/21 Planned Procedure: Hysteroscopy with D&C MyoSure Pre-Op Diagnosis: Menorrhagia Procedure Performed: Hysteroscopy with D&C and MyoSure Post Op Diagnosis: Endometrial polyps - Procedure Note Primary Surgeon: Giorgi Montanez MD Anesthesia Provider: Pardeep Antonio CRNA Anesthesia Technique: General LMA Pathology: Endometrial curettings Estimated Blood Loss (mL): 5 Urine Output (mL): 150 Findings: The endometrial cavity showed numerous areas of endometrial polyps as well as fluffy material. - Other Other Information/Narrative: Patient was taken the operating room and following adequate general anesthesia via LMA she was placed in the dorsolithotomy position. Pelvic examination was performed but was limited secondary to abdominal wall thickness. At this point she was prepped and draped in the usual fashion. A timeout was performed which concerns were addressed. At this point a speculum was placed in the vagina cervix visualized grasped with a single-tooth tenaculum. Both uterosacral ligaments were injected with a mixture of 0.5% Marcaine with 2% lidocaine with epinephrine. A total of 10 cc was injected. The cervix was then dilated up to 7 mm and a video hysteroscope was introduced without difficulty. The endometrial cavity showed numerous areas of fluffy material and polypoid type structures. At this point the MyoSure heavy was introduced and the endometrial cavity was cleaned out of its endometrial tissue. Both cornual use was easily visualized. The endometrial cavity appeared to be totally clear of any rem aining material. At this point the procedure was terminated the cervix was released from the tenaculum. No further bleeding was noted patient tolerated procedure well and was taken recovery in stable condition. Sponge and needle counts were correct.
--- NOTE | 2021-04-05 08:34 | ANESTHESIA POST OP EVALUATION ---
Anesthesia Post Eval - Post Anesthesia Eval Vitals: Last Vital Signs Temp 36.7 C 04/05/21 08:20 Pulse 86 04/05/21 08:25 Resp 22 04/05/21 08:25 BP 122/74 04/05/21 08:25 Pulse Ox 100 04/05/21 08:25 CV Function Including HR & BP: Stable Pain Control: Satisfactory Nausea & Vomiting: Negative Mental Status: Baseline Respiratory Status: Airway Patent Hydration Status: Satisfactory Anesthesia Complications: None
[2021-04-05 09:18] VITALS: BP 111/74
[2021-04-05] MEDS ORDERED: oxyCODONE 5 MG TABLET ONE (09:24)
== END 2021-04-05 06:26 | disposition home or self-care (01) ==
LOC: SDS 06:25
PROVIDERS: ATTEND Obstetrics & Gynecology
PROC: 0UDB8ZX Extraction of Endometrium, Via Natural or Artificial Opening Endoscopic, Diagnostic (ICD-10-PCS; principal; 2021-04-05 07:30)
DX: N92.1 Excessive and frequent menstruation with irregular cycle (principal); N80.9 Endometriosis, unspecified; N84.0 Polyp of corpus uteri; E66.9 Obesity, unspecified; Z68.36 Body mass index [BMI] 36.0-36.9, adult
CPT/HCPCS: 58558; A9270; J0131; J0690; J7120

== ENCOUNTER 2022-01-08 18:17 | Outpatient (CLI) | payer OTHER | END 2022-01-08 23:59 | disposition home or self-care (01) | LOC: LAB 18:17 | PROVIDERS: ATTEND Physician Assistant | DX: R30.0 Dysuria (principal) | CPT/HCPCS: 87086 ==

== ENCOUNTER 2022-05-16 08:08 | Outpatient (CLI) | payer OTHER ==
--- NOTE | 2022-05-16 12:35 | Mammography Report ---
BILATERAL DIGITAL DIAGNOSTIC MAMMOGRAM 3D/2D: 05/16/2022 CLINICAL: Focal right breast pain. Comparison is made to exams dated: 03/27/2017 mammogram, 12/09/2018 mammogram - [facility], and 04/12/2016 mammogram - [facility]. Both breasts are heterogeneously dense, which may obscure small masses (category c / 51-75% glandula r tissue). No significant masses, calcifications, or other findings are seen in either breast. IMPRESSION: INCOMPLETE: NEEDS ADDITIONAL IMAGING EVALUATION There is no abnormality seen in the right breast to correspond with the pain in the upper outer quadr ant, however, ultrasound is recommended. Based on the Tyrer Cuzick model (a risk assessment model) the patients lifetime risk is 8.7% and her 10 year risk is 1.7%. According to the ACR, ACS, and NCCN guidelines, an annual breast MRI exam birdie g with mammogram is recommended if the patients lifetime risk is 20% or greater. This exam was interpreted at Station ID: [id number]. NOTE: For mammograms, a report in lay terms will be sent to the patient. Approximately 15% of breast malignancies will not be visualized mammographically. In the management of a palpable breast mass, a negative mammogram must not discourage biopsy of a clinically suspicious lesion. Electronically Signed By: Dmitri Nunes acr/:05/16/2022 09:14:36 ACR BI-RADS Category 0: Incomplete 3340F PARENCHYMAL PATTERN: (D) - The breast(s) demonstrate(s) heterogeneously dense fibroglandular samy peñaloza. BI-RADS CATEGORY: (0) - 0 Ultrasound [id number] Immediate follow-up LATERALITY: (R)
--- NOTE | 2022-05-28 10:08 | Ultrasound Report ---
LIMITED ULTRASOUND OF RIGHT BREAST: 05/16/2022 CLINICAL: Focal right breast pain. Comparison is made to exams dated: 05/16/2022 mammogram, 12/09/2018 mammogram, 03/27/2017 mammogram - [facility], and 04/12/2016 mammogram - [facility]. Ultrasound of the right breast 10-11 o'clock region was performed. Santoyo scale images of the real-gabrielle e examination were reviewed. No abnormality which corresponds with the area of pain is identified. IMPRESSION: NEGATIVE There is no sonographic evidence of malignancy. There are no abnormalities seen in the right breast to correspond with the pain at 10 and 11 o'clock, however, clinical followup is recommended. Return to annual mammogram screening schedule is recommended. This exam was interpreted at Station ID: [id number]. Electronically Signed By: Dmitri Nunes acr/:05/27/2022 13:32:34 Ultrasound BI-RADS: 1 Negative BI-RADS CATEGORY: (1) - 1 RECOMMENDATION: (ANNUAL) - Recommend routine annual screening mammography. [id number] return to screening LATERALITY: (B)
== END 2022-05-16 08:09 | disposition home or self-care (01) ==
LOC: DI 08:08
PROVIDERS: ATTEND Physician Assistant
DX: N64.4 Mastodynia (principal)

== ENCOUNTER 2022-05-27 14:23 | Emergency (ER) | payer OTHER ==
[2022-05-27 14:33] VITALS: BP 139/72
[2022-05-27] MEDS ORDERED: oxyCODONE 5 MG TABLET PO STA (17:02)
[2022-05-27] MEDS ORDERED: ACETAMINOPHEN 325 MG TABLET PO STA (17:02)
[2022-05-27] MEDS ORDERED: LIDOCAINE PATCH 5% TOP STA (17:03)
--- NOTE | 2022-05-27 17:37 | ED Physician Documentation ---
PD HPI BACK PAIN - Stated complaint Stated Complaint: LOWER BACK PX - Chief complaint Chief Complaint: Back Pain - History obtained from History obtained from: Patient - Additional information Additional information: Patient is a 47-year-old female presenting for evaluation of low back pain that started yesterday. Patient reports history of chronic low back pain and has a fusion from L5-S1. She states that she was in the car for a long time yesterday and it started to hurt as she was getting out of the vehicle. She denies any trauma or injury. She has not taken anything for the pain. The pain is sharp. It does not radiate elsewhere. She denies bowel or bladder incontinence. She denies concern for .She denies fever, IV drug use or recent injections in the back. It is worse with movements and better at rest. Review of Systems Constitutional: denies: Fever Nose: denies: Congestion Cardiac: denies: Chest pain / pressure Respiratory: denies: Dyspnea GI: denies: Abdominal Pain, Vomiting : denies: Dysuria Musculoskeletal: reports: Back pain. denies: Extremity pain Neurologic: denies: Headache PD PAST MEDICAL HISTORY - Past Medical History Musculoskeletal: Chronic back pain, Other - Past Surgical History Past Surgical History: Yes General: Cholecystectomy - Present Medications Home Medications: Ambulatory Orders Medication Instructions Recorded Confirmed Cyclobenzaprine [Flexeril] 10 mg PO TID PRN #20 tablet 05/27/22 Ibuprofen [Motrin] 600 mg PO Q6H PRN #30 tab 05/27/22 Lidocaine Patch 5% [Lidoderm Patch] 1 patch TOP DAILY PRN #10 patch 05/27/22 - Allergies Allergies/Adverse Reactions: Allergies Allergy/AdvReac Type Severity Reaction Status Date / Time No Known Drug Allergies Allergy Verified 05/27/22 14:33 - Social History Does the pt smoke?: No Smoking Status: Never smoker Does the pt drink ETOH?: No - Immunizations Immunizations are current?: Yes PD ED PE NORMAL - General General: Alert and oriented X 3, No acute distress, Well developed/nourished - HEENT HEENT: Atraumatic, Moist mucous membranes - Neck Neck: Supple, no meningeal sign - Cardiac Cardiac: RRR, No murmur, Strong equal pulses - Respiratory Respiratory: No respiratory distress, Clear bilaterally - Abdomen Abdomen: Normal bowel sounds, Soft, Non tender, Non distended - Back Back: Other (Mild low lumbar tenderness to palpation, no bony step-offs, no erythema, no swelling) - Derm Derm: Warm and dry - Extremities Extremities: No edema, No calf tenderness / cord, Other (Pedal pulses intact) - Neuro Neuro: Alert and oriented X 3, No motor deficit, No sensory deficit, Normal speech, Other (Normal unassisted gait) Results - Vitals Vitals: Vital Signs - 24 hr 05/27/22 14:30 Temperature 36.0 C L Heart Rate 91 Respiratory 16 Rate Blood Pressure 139/72 H O2 Saturation 98 Oxygen O2 Source Room air PD MEDICAL DECISION MAKING - ED course Complexity details: re-evaluated patient ED course: hCG ordered. Patient was unable to give UA specimen and requested discharge. She states that she has had a tubal and her has had a vasectomy and there is no chance that she is . Patient presenting for evaluation of low back pain. Reports having chronic pain which was exacerbated by recent long car trip. No red flag signs or symptoms. No signs of cord compression or cauda equina. She is afebrile. She is ambulatory with a normal neuro exam.She denies abdominal complaints. She denies concern for . Patient is feeling better after dose of medication here and is comfortable with trial of lidocaine patches, anti-inflammatories as well as follow-up with her primary care doctor.Patient is advised on strict return precautions for any worrisome symptoms to return for. Departure - Departure Disposition: 01 Home, Self Care Clinical Impression: Acute exacerbation of chronic low back pain Condition: Stable Instructions: ED Neck Back Pain General Follow-Up: Mekhi Montalvo DO [Provider Admit Priv/Credential] - Prescriptions: Cyclobenzaprine [Flexeril] 10 mg PO TID PRN #20 tablet PRN Reason: Spasms Lidocaine Patch 5% [Lidoderm Patch] 1 patch TOP DAILY PRN #10 patch PRN Reason: pain Ibuprofen [Motrin] 600 mg PO Q6H PRN #30 tab PRN Reason: Pain Comments: You were evaluated for low back pain which seems to be an exacerbation of your chronic pain. I have sent prescriptions for anti-inflammatories, muscle relaxers and lidocaine patches to [facility]. Please use these medications as needed. I would also encourage you to have close follow-up with your primary care doctor if your pain does not improve. If you have any worsening symptoms please return to the ER. You were given a single dose of narcotic pain medication while in the ED. I would recommend do not drive or operate any machinery for the remainder of the day as it may be sedating. Forms: Activity restrictions Discharge Date/Time: 05/27/22 17:49
== END 2022-05-27 17:49 | disposition home or self-care (01) ==
LOC: ED 14:23
DX: M54.50 Low back pain, unspecified (principal); G89.29 Other chronic pain
CPT/HCPCS: 99283; 99284; A9270

== ENCOUNTER 2023-04-15 17:48 | Outpatient (CLI) | payer OTHER ==
--- NOTE | 2023-04-17 08:26 | XRAY Report ---
PROCEDURE: Lumbar Spine 2 View INDICATIONS: LUMBAR BACK PAIN TECHNIQUE: 3 views of the lumbar spine were acquired. COMPARISON: X-ray lumbar spine, 12/11/2018. FINDINGS: Bones: 5 [id number] vertebrae are present. Discectomy and posterior fusion at L5-S1. Surgical h ardware are intact. There is normal bony alignment. No vertebral body compression fractures. No graham picious bony lesions. Mild degenerative disc disease at L3-L4 and L4-L5. Mild facet arthropathy at L 2-L3, L3-L4 and moderate facet arthropathy at L5 L5 and L5-S1. Soft tissues: Overlying bowel gas pattern is normal. No suspicious soft tissue calcifications. IMPRESSION: 1. Postsurgical changes with discectomy and posterior fusion. 2. Degenerative disc and facet disease in lumbar spine as described. Reviewed by: Juan Browning MD on 04/17/2023 8:24 AM PDT Approved by: Juan Browning MD on 04/17/2023 8:24 AM PDT Station ID: [id number]
== END 2023-04-15 17:49 | disposition home or self-care (01) ==
LOC: DI 17:48
PROVIDERS: ATTEND Family Medicine
DX: M47.816 Spondylosis without myelopathy or radiculopathy, lumbar region (principal); M47.817 Spondylosis without myelopathy or radiculopathy, lumbosacral region; M51.36 Other intervertebral disc degeneration, lumbar region; Z98.1 Arthrodesis status

== ENCOUNTER 2023-05-15 17:41 | Outpatient (CLI) | payer OTHER ==
--- NOTE | 2023-05-16 16:28 | MRI Report ---
PROCEDURE: LUMBAR SPINE WO INDICATIONS: LUMBAR RADICULOPATHY TECHNIQUE: Noncontrast sagittal T1 spin echo and T2 fast echo, sagittal STIR, axial T1 and T2 fast spin echo thr ough the lumbar spine. In cases with scoliosis, additional coronal T2 fast spin echo may be performe d. COMPARISON: None. FINDINGS: Image quality: Good Alignment: No spondylolisthesis. Marrow: Vertebral body heights are well-maintained. Suspected hemangioma seen at T11. No acute fractu re L5-S1 fusion hardware is in place Cord: Cord terminates in normal position. Cauda equina nerve roots are within normal limits. Soft tissues: Suspected partially seen ovarian cysts. Specific levels: T12-L1: Mild facet arthropathy. No stenosis. L1-L2: Mild facet arthropathy. No stenosis. L2-L3: Mild to moderate facet arthropathy. Small diffuse disc bulge. No stenosis. L3-L4: Small central protrusion and diffuse disc bulge. Mild to moderate facet arthropathy. Mild cent ral narrowing and mild left subarticular recess narrowing. Mild left and right neural foraminal narro wing. L4-L5: Mild to moderate diffuse disc bulge and moderate facet arthropathy. Mild to moderate central n arrowing affecting both subarticular recesses. Mild to moderate left and right neural foraminal narro wing. L5-S1. Fusion level. No stenosis. The neural foramen are not well seen, there may be left mild to mod erate narrowing. IMPRESSION: Possible developing transfer lesion at L4-L5, with mild to moderate degenerative changes. Low-grade spondylosis at the other levels. Reviewed by: Jett Curry MD on 05/16/2023 4:26 PM PDT Approved by: Jett Curry MD on 05/16/2023 4:26 PM PDT Station ID: [id number]
== END 2023-05-15 17:42 | disposition home or self-care (01) ==
LOC: DI 17:41
PROVIDERS: ATTEND Family Medicine
DX: M51.16 Intervertebral disc disorders with radiculopathy, lumbar region (principal); M47.26 Other spondylosis with radiculopathy, lumbar region; M48.061 Spinal stenosis, lumbar region without neurogenic claudication